=== PATIENT | male | born 1955 | race Caucasian/White ===

== ENCOUNTER 2019-08-06 05:13 | Observation (INO) ==
--- NOTE | 2019-07-29 10:22 | EKG Report ---
Test Performed on : 07/29/2019 10:07:55 AM Test Reason : PAT Blood Pressure : / mmHG Vent. Rate : 078 BPM Atrial Rate : 078 BPM P-R Int : 134 ms QRS Dur : 080 ms QT Int : 398 ms P-R-T Axes : 073 096 034 degrees QTc Int : 453 ms Normal sinus rhythm. Rightward axis Borderline ECG No previous ECGs available Confirmed by Giorgio DEMARCO, Dominic Robin ([id number]) on 07/30/2019 8:21:33 AM
[2019-07-29 10:46] LABS: HEMATOCRIT 45.8 % (42.0-52.0); HEMOGLOBIN 15.4 g/dL (14.0-18.0); INR 1.05; MCH 31.6 PG (27-31); MCHC 33.6 g/dL (33-37); MPV 10.1 FL (7.4-10.4); PROTIME 13.8 Seconds (11.0-16.0); RBC 4.87 XMIL (4.7-6.1); RDW 13.4 % (11.5-14.5); WBC 5.17 X1000 (4.8-10.8)
[2019-07-29 10:47] LABS: PTT 28.8 Seconds (22.3-41.8)
[2019-07-29 11:08] LABS: AGAP 10; BUN 16 mg/dL (8-22); CALCIUM 8.7 mg/dL (8.8-10.2); CHLORIDE 103 mmol/L (98-107); COSMO 286; CREATININE 0.8 mg/dL (0.7-1.2); ESTIMATED GFR > 60; GLUCOSE 88 mg/dL (70-104); POTASSIUM 3.7 mmol/L (3.5-5.1); SODIUM 143 mmol/L (136-145); TCO2 30 mmol/L (25-35)
[2019-08-06] MEDS ORDERED: KEFZOL 1 GM/D5W 2 GM/100 ML IVPB ONE (05:40)
[2019-08-06] MEDS ORDERED: PEPCID ONE (05:40)
[2019-08-06] MEDS ORDERED: REGLAN ONE (05:40)
[2019-08-06] MEDS ORDERED: LR 1,000 ML ONE (05:40)
[2019-08-06] MEDS ORDERED: FENTANYL ONE (05:44)
[2019-08-06] MEDS ORDERED: DIPRIVAN 1% ONE (05:44)
[2019-08-06] MEDS ORDERED: VERSED ONE (05:44)
[2019-08-06] MEDS ORDERED: XYLOCAINE-MPF 2% ONE (05:45)
[2019-08-06] MEDS ORDERED: QUELICIN (DOSE) ONE (05:45)
[2019-08-06] MEDS ORDERED: NS 1,000 ML ONE ×2 (06:10→08:29)
[2019-08-06] MEDS ORDERED: OFIRMEV 1000 MG/ISOTONIC SOLN 1,000 MG/100 ML BOTTLE ONE (07:35)
[2019-08-06] MEDS ORDERED: NEO-SYNEPHRINE ONE (07:35)
[2019-08-06] MEDS ORDERED: ZOFRAN ONE (07:35)
[2019-08-06] MEDS ORDERED: B & O 15A SUPP ONE (07:53)
[2019-08-06] MEDS: PERIDEX MT SCH ×2 (09:08→20:14)
[2019-08-06] MEDS ORDERED: MORPHINE IV PRN (09:10)
[2019-08-06] MEDS ORDERED: DILAUDID IV PRN (09:15)
[2019-08-06] MEDS ORDERED: LABETALOL IV PRN (09:15)
[2019-08-06] MEDS ORDERED: PHENERGAN IV PRN (09:15)
[2019-08-06] MEDS ORDERED: PHENERGAN PR PRN (09:15)
[2019-08-06] MEDS ORDERED: NORCO-5 PO PRN (09:15)
[2019-08-06] MEDS ORDERED: DITROPAN PO PRN (09:15)
[2019-08-06] MEDS ORDERED: SODIUM CHLORIDE 0.9% INJ PRN (09:15)
[2019-08-06] MEDS ORDERED: NORCO-7.5 PO PRN (09:15)
[2019-08-06] MEDS ORDERED: PHENERGAN PO PRN (09:15)
[2019-08-06] MEDS ORDERED: BENADRYL IV PRN (09:15)
[2019-08-06] MEDS ORDERED: ZOFRAN IV PRN (09:15)
[2019-08-06] MEDS ORDERED: BENADRYL LIQUID PO PRN (09:15)
[2019-08-06] MEDS: NORCO-10 PO PRN (09:40)
[2019-08-06] MEDS: NS 1,000 ML IV SCH ×2 (10:50→20:13)
[2019-08-06] MEDS ORDERED: VENTOLIN HFA INH PRN (12:22)
--- NOTE | 2019-08-06 13:10 | OPERATIVE NOTE ---
PROCEDURE DATE: 08/06/2019 SURGEON: Stephen Tidwell M.D. PREOPERATIVE DIAGNOSES: 1. Benign prostatic hypertrophy. 2. Urinary retention. POSTOPERATIVE DIAGNOSES: 1. Benign prostatic hypertrophy. 2. Urinary retention. PROCEDURE PERFORMED: GreenLight transurethral vaporization of the prostate. INDICATIONS: A 64-year-old male with long-standing history of BPH, who has been on Flomax and finasteride. He failed medical therapy, and eventually went into urinary retention. He has indwelling catheter. He has had cystoscopy in the past that revealed significant prostatic hypertrophy. He desires definitive intervention. FINDINGS: He had trilobar prostatic hypertrophy with adenoma protruding into the bladder. Adequate hemostasis at the conclusion of the case. DESCRIPTION OF PROCEDURE: After obtaining informed consent, the patient was brought to the operating room. Perioperative antibiotics and laryngeal mask anesthesia were administered. He was placed in the lithotomy position, prepped and draped in a sterile fashion. A 23-Stateless resectoscope was introduced, and his bladder and urethra were examined. He had trilobar prostatic hypertrophy as mentioned above. His bladder showed moderate trabeculations, no sizable diverticula, and no bladder lesions noted. There were no stones within the bladder lumen. I was able to see bilateral ureteral orifices. We then introduced a GreenLight laser fiber, and I began by resecting prostatic adenoma as a median lobe with power settings of 80 garvin. After the median lobe was addressed, I treated the adenoma circumferentially with 80 garvin down to the level of the verumontanum, but making sure we did not go distal to it. We then increased the energy to 140 garvin, and addressed lateral lobes as well as posterior floor. The laser was then turned back down to 80 garvin, and area around the verumontanum and bladder neck were treated. I also treated the anterior tissue with 80 garvin. Upon conclusion, there was an excellent TUR defect. There was no evidence of redundant tissue noted. Hemostasis was excellent. The resectoscope was removed, and 20-Stateless 3-way Almanza catheter was introduced and placed to continuous bladder irrigation. His penis was placed on light traction with gauze. He was extubated and taken to PACU for further recovery. ESTIMATED BLOOD LOSS: 30 mL. COMPLICATIONS: None. DISPOSITION: To PACU and subsequently to the floor for observation. At first, we planned for the patient to go home, but upon further discussion, his expressed concern as she does not drive and would have no way of transporting him without extra assistance. Hence, we made the decision for him to stay overnight. cc: Stephen Tidwell MD
[2019-08-06] MEDS ORDERED: OFIRMEV 1000 MG/ISOTONIC SOLN 1,000 MG/100 ML BOTTLE IV PRN (14:00)
[2019-08-06] MEDS: KEFZOL 2 GM/D5W 2 GM/50 ML IVPB IV SCH (14:35)
[2019-08-06] MEDS: COLACE PO SCH (20:14)
[2019-08-06] MEDS ORDERED: ZETIA PO SCH (21:00)
[2019-08-06] MEDS ORDERED: SINGULAIR PO SCH (21:00)
[2019-08-07] MEDS: KEFZOL 2 GM/D5W 2 GM/50 ML IVPB IV SCH ×2 (00:27→08:39)
[2019-08-07] MEDS: NS 1,000 ML IV SCH (06:33)
[2019-08-07 06:57] LABS: HEMATOCRIT 43.7 % (42.0-52.0); HEMOGLOBIN 14.5 g/dL (14.0-18.0); MCH 31.9 PG (27-31); MCHC 33.2 g/dL (33-37); MPV 10.3 FL (7.4-10.4); RBC 4.55 XMIL (4.7-6.1); RDW 13.8 % (11.5-14.5); WBC 8.06 X1000 (4.8-10.8)
[2019-08-07] MEDS ORDERED: PRILOSEC PO SCH (07:00)
[2019-08-07 07:19] LABS: AGAP 13; BUN 12 mg/dL (8-22); CHLORIDE 102 mmol/L (98-107); COSMO 278; CREATININE 0.8 mg/dL (0.7-1.2); ESTIMATED GFR > 60; GLUCOSE 111 mg/dL (70-104); POTASSIUM 3.9 mmol/L (3.5-5.1); SODIUM 139 mmol/L (136-145); TCO2 24 mmol/L (25-35)
[2019-08-07 07:20] LABS: CALCIUM 8.2 mg/dL (8.8-10.2)
[2019-08-07 07:33] VITALS: BP 131/73
[2019-08-07] MEDS: PERIDEX MT SCH (08:38)
[2019-08-07] MEDS: COLACE PO SCH (08:38)
[2019-08-07] MEDS: NORCO-10 PO PRN (08:39)
[2019-08-07] MEDS ORDERED: LEXAPRO PO SCH (09:00)
[2019-08-07] MEDS ORDERED: ZYRTEC PO SCH (09:00)
== END 2019-08-07 09:49 | disposition home or self-care (01) ==
LOC: OR 05:13 → 4N 05:13
PROVIDERS: ADMIT Urology; ATTEND Urology